=== PATIENT | female | born 1995 | race African-American/Black ===

== ENCOUNTER 2021-02-03 09:59 | Emergency (ER) | payer OTHER, SELFPAY ==
[2021-02-03 10:10] VITALS: BP 124/83; PULSE 73; RESP 18; TEMP 37.1; O2SAT 98; BMI 30.2
[2021-02-03 12:39] LABS: Bacteria Urine None Seen
[2021-02-03 12:50] LABS: Amorphous Sediment Urine 1+; Culture Indicated Urine Cult Not Indicated; RBC Urine 0-1/HPF (0-5/HPF); Squamous Epithelial Cell Urine 0-1 /HPF (0-5/HPF); WBC Urine 0-1/HPF (0-5/HPF)
[2021-02-03] MEDS: KETOROLAC 30 MG/ML VIAL IM (13:29)
[2021-02-03] MEDS: diazePAM 5 MG TABLET PO (13:30)
[2021-02-03 14:11] VITALS: BP 125/87; PULSE 72; O2SAT 100
--- NOTE | 2021-02-03 16:39 | ED.BACK ---
HPI - Back Pain/Injury General Chief Complaint: Back Pain/Injury Stated Complaint: Pulled something in her lower back Time Seen by Provider: 02/03/21 12:48 Source: patient Limitations: no limitations History of Present Illness HPI Narrative: 25-year-old otherwise healthy young woman presents with 2 days of right-sided back/flank pain. She notes that 2 days ago was slightly irritated but does not describe any specific obvious trauma, bending twisting or turning that might have exacerbated this. Over the next 2 days she has had more muscle spasm in the right side with pain radiating down into the buttock. No fevers, chills, dysuria, abdominal pain, skin changes or rashes. She has not tried any medications. 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 Related Data Previous Rx's Medication Instructions Recorded diazepam [Valium] 5 mg PO BID PRN #10 tab 02/03/21 Review of Systems Review of Systems Narrative: Remainder of complete review of systems is otherwise unremarkable except for that included in the HPI. Patient History Social History Smoking Status: Never smoker Smoking Status: Never smoker alcohol intake frequency: holidays/special occasions only Substance Use Type: does not use Exam Narrative Exam Narrative: General: Alert appropriate in no acute distress Respiratory: Able to speak in full sentences, no obvious respiratory distress Skin: No obvious rashes, warm and dry Neurologic: Grossly intact no obvious asymmetries or abnormalities Psych: appropriate insight and affect, cooperative Back: No skin changes. No point tenderness along spinous processes. She has an obvious area of muscle spasm in the lateral paraspinous muscles from approximately T10-L4. Pressure along this muscle spasm completely recreates her pain. Initial Vital Signs Initial Vital Signs: Vital Signs Temperature 98.7 F 02/03/21 10:10 Pulse Rate 73 02/03/21 10:10 Respiratory Rate 18 02/03/21 10:10 Blood Pressure 124/83 02/03/21 10:10 Pulse Oximetry 98 02/03/21 10:10 Course Orders Ordered: ED Orders 02/03/21 12:10 Urine Microscopic Stat Discontinued Medications Diazepam (Diazepam 5 Mg Tablet) 5 mg PO NOW ONE Stop: 02/03/21 13:13 Last Admin: 02/03/21 13:30 Dose: 5 mg Documented by: DARYL Ketorolac Tromethamine (Ketorolac 30 Mg/Ml Vial) 30 mg IM NOW ONE Stop: 02/03/21 13:13 Last Admin: 02/03/21 13:29 Dose: 30 mg Documented by: DARYL Vital Signs Vital signs: Vital Signs - 8 hr 02/03/21 10:10 02/03/21 14:11 Temperature 98.7 F Pulse Rate 73 72 Respiratory Rate 18 Blood Pressure 124/83 125/87 Pulse Oximetry 98 100 MDM - Back Pain/Injury Medical Records Attestation: I reviewed the patient's medical records. Lab Data Attestation: I reviewed the patient's lab results. Labs: Lab Results 02/03/21 Range/Units 12:10 Urine RBC 0-1/hpf (0-5/HPF) Urine WBC 0-1/hpf (0-5/HPF) Ur Squamous Epith Cells 0-1 /hpf (0-5/HPF) Amorphous Sediment 1+ Urine Bacteria None seen (None) Ur Culture Indicated? Cult not indicated Point of Care Testing Test Results Negative Urine Dip Bedside Urine Glucose Negative Bedside Urine Bilirubin - Negative Bedside Urine Ketone - Negative Urine Specific [place] 1.020 Bedside Urine Occult Blood +/- Bedside Urine pH 6.0 Bedside Urine Protein - Negative Bedside Urine Urobilinogen - Negative Bedside Urine Nitrite - Negative Bedside Urine Leukocytes - Negative Esterase [facility] Narrative Medical decision making narrative: 25-year-old woman with right-sided musculoskeletal back pain without evidence of pyelonephritis, ureterolithiasis or pelvic/adnexal complications. She responded well to IM Toradol and Valium for muscle spasm. Recommended ibuprofen Tylenol and give her prescription for Valium for muscle spasm along with instructions on avoiding driving after taking this. She is safe for home discharge Discharge Plan Departure Patient Disposition: Home Clinical Impression: Strain of lumbar region Qualifiers: Encounter type: initial encounter Qualified Code(s): S39.012A - Strain of muscle, fascia and tendon of lower back, initial encounter Instructions: DI for Muscle Strain Activity Restrictions/Additional Instructions: Thank you for coming in today With the muscle spasm that is easily palpable along your back, I suspect that this is the cause of your pain. Using 400 mg of ibuprofen (2 [id number] pills) and 1 Tylenol every 6 hours can be very helpful in controlling pain. I have given you a small prescription of diazepam, at muscle relaxer. This can make you sleepy and you should not drive within 3 hours of taking this. It is okay to mix diazepam, ibuprofen and Tylenol. You may also find that using ice to that area of your back that is spasming can help control the pain. With your long drive to your new deployment, I would recommend that you stop frequently at rest stops and get up and actually walk around the parking lot. It may seem like it takes more time but you will find that your back is much more comfortable if you allow this amount of movement. Good luck with your move Prescriptions: New diazepam [Valium] 5 mg tablet 5 mg PO BID PRN (Reason: muscle spasm) Qty: 10 RF: 0
== END 2021-02-03 14:12 | disposition home or self-care (01) ==
PROVIDERS: Emergency Provider Emergency Medicine
DX: S39.012A Strain of muscle, fascia and tendon of lower back, initial encounter (principal)
CPT/HCPCS: 81003; 81015; 81025; 96372; 99283; J1885